=== PATIENT | female | born 1980 | race American Indian/Alaskan Native ===

== ENCOUNTER 2017-11-12 19:42 | Emergency (ER) | payer MEDICAID, OTHER ==
[2017-11-12] MEDS ORDERED: NACL 0.9% 1000 ML 1,000 ML IV ONE (20:36)
[2017-11-12 21:29] LABS: Basophils % (Auto) 1.1 % (0.0-1.8); Eosinophils # (Auto) 0.1 K/mm3 (0.0-0.4); Eosinophils % (Auto) 2.9 % (0.0-4.3); Hematocrit 39.5 % (30.3-42.9); Hemoglobin 13.2 gm/dl (10.1-14.3); Lymphocytes # (Auto) 1.6 K/mm3 (1.2-5.4); Lymphocytes % (Auto) 41.4 % (13.4-35.0); Mean Corpuscular HGB Conc 33 % (30-34); Mean Corpuscular Hemoglobin 31 pg (28-32); Mean Corpuscular Volume 94 fl (79-97); Monocytes # (Auto) 0.4 K/mm3 (0.0-0.8); Platelet Count 191 K/mm3 (140-440); Red Blood Count 4.22 M/mm3 (3.65-5.03); Red Cell Distribution Width 13.4 % (13.2-15.2)
[2017-11-12] MEDS ORDERED: ZOFRAN ODT PO ONE (21:41)
[2017-11-12] MEDS ORDERED: ALUM-MAG HYDROX-SIMETH 200-200-20MG/5ML PO ONE (21:41)
[2017-11-12] MEDS ORDERED: LIDOCAINE VISCOUS 2% PO ONE (21:41)
--- NOTE | 2017-11-12 21:45 | Emergency Department Report ---
ED Abdominal Pain HPI - General Chief Complaint: Abdominal Pain Stated Complaint: R FLANK PAIN Time Seen by Provider: 11/12/17 21:36 Source: patient Mode of arrival: Ambulatory Limitations: No Limitations - History of Present Illness Initial Comments: 5 days of intermittent right upper quadrant abdominal pain that radiates around to her back. Not affected by food, exertion, or deep breaths. No urinary symptoms. Afebrile. Nauseous, no vomiting. Only abdominal surgeries are vital section. She has never had this pain before. Denies vaginal complaints. Of note, patient also endorses 5 days of right hand and foot tingling that is intermittent. She's never had these symptoms before either. Pt did take 600 mg Motrin yesterday, which did help her pain. - Related Data Previous Rx's Medication Instructions Recorded Last Taken Type Naproxen [Naprosyn] 500 mg PO BID PRN #20 tablet 06/23/15 Unknown Rx metroNIDAZOLE 0.75% [Vandazole 1 applicator VG QHS #7 tube 06/23/15 Unknown Rx 0.75% VAGINAL] Cephalexin [Keflex] 500 mg PO Q8HR #30 capsule 11/13/17 Unknown Rx Ondansetron [Zofran Odt] 4 mg PO Q6H PRN #10 tab.rapdis 11/13/17 Unknown Rx traMADol [Ultram 50 MG tab] 50 mg PO Q8H PRN #10 tablet 11/13/17 Unknown Rx Allergies Allergy/AdvReac Type Severity Reaction Status Date / Time latex Allergy Itching Verified 06/23/15 16:30 ED Review of Systems ROS: Stated complaint: R FLANK PAIN Other details as noted in HPI Comment: All other systems reviewed and negative Gastrointestinal: abdominal pain, nausea Neurological: paresthesias ED Past Medical Hx - Past Medical History Previous Medical History?: No - Surgical History Past Surgical History?: Yes Additional Surgical History: lippo suction - Social History Smoking Status: Current Every Day Smoker Substance Use Type: Alcohol, Marijuana - Medications Home Medications: Home Medications Medication Instructions Recorded Confirmed Last Taken Type Naproxen [Naprosyn] 500 mg PO BID PRN #20 tablet 06/23/15 Unknown Rx metroNIDAZOLE 0.75% [Vandazole 1 applicator VG QHS #7 tube 06/23/15 Unknown Rx 0.75% VAGINAL] Cephalexin [Keflex] 500 mg PO Q8HR #30 capsule 11/13/17 Unknown Rx Ondansetron [Zofran Odt] 4 mg PO Q6H PRN #10 tab.rapdis 11/13/17 Unknown Rx traMADol [Ultram 50 MG tab] 50 mg PO Q8H PRN #10 tablet 11/13/17 Unknown Rx ED Physical Exam - General Limitations: No Limitations General appearance: alert, in no apparent distress - Head Head exam: Present: atraumatic, normocephalic - Eye Eye exam: Present: normal appearance - ENT ENT exam: Present: mucous membranes moist - Neck Neck exam: Present: normal inspection - Respiratory Respiratory exam: Present: normal lung sounds bilaterally. Absent: respiratory distress - Cardiovascular Cardiovascular Exam: Present: regular rate, normal rhythm. Absent: systolic murmur, diastolic murmur, rubs, gallop - GI/Abdominal GI/Abdominal exam: Present: soft, tenderness (RUQ tenderness, +cruz's. No cva tenderness), normal bowel sounds. Absent: guarding, rebound, rigid - Extremities Exam Extremities exam: Present: normal inspection - Back Exam Back exam: Present: normal inspection - Neurological Exam Neurological exam: Present: alert, oriented X3, CN II-XII intact, normal gait - Psychiatric Psychiatric exam: Present: normal affect, normal mood - Skin Skin exam: Present: warm, dry, intact, normal color. Absent: rash ED Course Vital Signs 11/13/17 00:09 Temperature 97.5 F L Pulse Rate 55 L Respiratory 16 Rate Blood Pressure 102/66 [Right] O2 Sat by Pulse 20 L Oximetry ED Medical Decision Making - Lab Data Result diagrams: 11/12/17 20:49 11/12/17 20:49 - Radiology Data Radiology results: report reviewed - Medical Decision Making 36 yo female with no significant past medical history that presents to the ER with right flank pain. Vital signs are stable. Patient is well-appearing. Lab work is unremarkable. Urinalysis shows concerns for infection. CT scan shows unilateral polycystic kidney on the right side. This could correspond with the patient's pain. I will treat the patient for pyelonephritis with Keflex. Urine will be sent for culture. I have given the patient referral to nephrology for her polycystic kidney. Pt has been given a handout on polycystic kidney dz. Creatinine function is unremarkable. I am unsure of the source of the patient's right hand and foot intermittent tingling. No focal neurologic deficit. I offered the patient is CT head. She says she did not want to wait for the CT head. I explained to her the risk of not complaining her evaluation. She said that she is willing to accept this risk and will follow-up with her family doctor for further evaluation of her paresthesias. I have low suspicion for a CVA event. - Differential Diagnosis pyelo, uti, kidney stone, cholecystitis, sbo, pancreatitis, gastritis, cva Critical care attestation.: If time is entered above; I have spent that time in minutes in the direct care of this critically ill patient, excluding procedure time. ED Disposition Clinical Impression: Polycystic kidney, Pyelonephritis, Paresthesias Disposition: TO HOME OR SELFCARE Is pt being admited?: No Does the pt Need Aspirin: No Condition: Stable Instructions: Acute Pyelonephritis (ED) Additional Instructions: Please follow up with the kidney doctor about your polycystic kidney. Please follow up with your family doctor about your kidney infection. Prescriptions: Cephalexin [Keflex] 500 mg PO Q8HR #30 capsule Ondansetron [Zofran Odt] 4 mg PO Q6H PRN #10 tab.rapdis PRN Reason: Nausea traMADol [Ultram 50 MG tab] 50 mg PO Q8H PRN #10 tablet PRN Reason: Pain Referrals: PRIMARY CARE, [Primary Care Provider] - 3-5 Days [facility] [Outside] - 3-5 Days GREGORY ALARCON MD [Staff Physician] - 3-5 Days
[2017-11-12 21:55] LABS: Alanine Aminotransferase 10 units/L (7-56); Albumin 4.4 g/dL (3.9-5); BUN/Creatinine Ratio 12; Blood Urea Nitrogen 7 mg/dL (7-17); Calcium 9.4 mg/dL (8.4-10.2); Hemolysis Index 10
[2017-11-12 22:08] LABS: Bacteria,Urine 1+ /HPF (Negative); Bilirubin,Urine NEG (Negative); Blood,Urine SM (Negative); Color,Urine Yellow (Yellow); Protein,Urine <15 mg/dL mg/dL (Negative); Urobilinogen,Urine < 2.0 mg/dL (<2.0)
--- NOTE | 2017-11-12 23:36 | Cat Scan Report ---
FINAL REPORT PROCEDURE: CT ABDOMEN PELVIS WO CON TECHNIQUE: Computerized axial tomography of the abdomen and pelvis was performed without intravenous contrast. This study is performed without intravascular contrast material and its sensitivity for abdominal and pelvic pathology, including neoplasms, inflammation, abscess, free fluid, thrombosis, arterial dissection and infarction, is reduced compared with a contrast enhanced study. HISTORY: rt flank pain COMPARISON: No prior studies are available for comparison. FINDINGS: Liver, spleen, and adrenal glands are within normal limits. Multiple cystic lesions of varying sizes are noted in the right kidney largest measuring 2.8 centimeters located in the lower pole. Left kidney is unremarkable. Urinary bladder is partially filled. Aorta is of normal caliber. There is no free fluid or free air. Gallbladder is unremarkable. Small bowel loops are within normal limits. There is mild degree residual stool. Appendix is normal. An IUD is in place. Vertebral height is normal. IMPRESSION: Multiple cysts are noted in the right kidney most likely representing unilateral polycystic kidney disease. No obstructive uropathy Otherwise no acute intra-abdominal or pelvic pathology as visualized on this noncontrast study.
[2017-11-13] MEDS ORDERED: KEFLEX PO ONE (00:03)
[2017-11-13 00:09] VITALS: BP 102/66
[2017-11-13] MEDS ORDERED: ULTRAM PO ONE (00:13)
== END 2017-11-13 01:59 | disposition home or self-care (01) ==
LOC: ED 19:42
DX: N12 Tubulo-interstitial nephritis, not specified as acute or chronic (principal); F17.200 Nicotine dependence, unspecified, uncomplicated; Z91.040 Latex allergy status
CPT/HCPCS: 36415; 74176; 80053; 81001; 84703; 85025; 87086; 99284; Q0162